=== PATIENT | female | born 1980 | race Caucasian/White ===

== ENCOUNTER 2017-12-24 15:37 | Outpatient (CLI) | payer OTHER | END 2017-12-24 21:06 | disposition home or self-care (01) | LOC: OBT 15:37 → L-D 15:38 → OBT 21:06 | DX: O36.8330 Maternal care for abnormalities of the fetal heart rate or rhythm, third trimester, not applicable or unspecified (principal); O09.523 Supervision of elderly multigravida, third trimester; Z3A.38 38 weeks gestation of pregnancy | CPT/HCPCS: 76818 ==

== ENCOUNTER 2018-01-07 13:13 | Inpatient (IN) | payer OTHER ==
[2018-01-07] MEDS ORDERED: MISOPROSTOL 200 MCG TAB PR (14:00)
[2018-01-07] MEDS ORDERED: LIDOCAINE 1% (MPF) 30 ML INJ INJ (14:00)
[2018-01-07] MEDS ORDERED: OXYTOCIN 30 UNITS/LR 500 ML IV ×2 (14:00→17:30)
[2018-01-07] MEDS ORDERED: CARBOPROST 250 MCG INJ IM (14:00)
[2018-01-07] MEDS: LACTATED RINGER'S 1,000 ML IV* ×2 (15:53→22:30)
[2018-01-07 16:08] LABS: ADD MAN DIFF? NO; BASOPHILS % 0.5 % (0.0-2.0); EOSINOPHILS # 0.1 10^3/ul (0.0-0.5); EOSINOPHILS % 1.5 % (0.0-7.0); HEMATOCRIT 34.2 % (37.0-47.0); HEMOGLOBIN 11.4 g/dl (12.0-16.0); LYMPHOCYTES # 2.1 10^3/ul (0.8-2.9); LYMPHOCYTES % 31.7 % (15.0-51.0); MEAN CORPUSCULAR HGB CONC 33.3 g/dl (32.0-37.0); MONOCYTE # 0.4 10^3/ul (0.3-0.9); MONOCYTES % 5.9 % (0.0-11.0); NEUTROPHIL # 3.9 10^3/ul (1.6-7.5); PLATELET COUNT 162 10^3/UL (140-415); RED BLOOD COUNT 3.93 10^6/ul (4.20-5.40); RED CELL DISTRIBUTION WIDTH 13.5 % (11.5-14.5)
[2018-01-07 16:08] LABS: WHITE BLOOD COUNT 6.6 10^3/ul (4.8-10.8)
[2018-01-07 16:28] LABS: INR 0.89; PARTIAL THROMBOPLASTIN TIME 29.8 Sec (23.0-35.0); PROTIME 12.1 Sec (11.9-14.9); PT RATIO 0.9
[2018-01-07] MEDS: OXYTOCIN 30 UNITS/LR 500 ML IV ×3 (17:50→23:51)
[2018-01-07] MEDS: LIDOCAINE 0.5% (SDV) 50 ML INJ INFIL (20:30)
[2018-01-07] MEDS: BUTORPHANOL 2 MG INJ IV (22:54)
[2018-01-07] MEDS: METHYLERGONOVINE 0.2 MG INJ IM (23:43)
[2018-01-07] MEDS ORDERED: DEXTROSE 5%-LR 1,000 ML IV (23:50)
[2018-01-07] MEDS ORDERED: LACTATED RINGER'S 1,000 ML IV* (23:50)
[2018-01-08] MEDS ORDERED: MISOPROSTOL 200 MCG TAB PR
[2018-01-08] MEDS ORDERED: ONDANSETRON 4 MG INJ IV
[2018-01-08] MEDS ORDERED: METHYLERGONOVINE 0.2 MG INJ IM
[2018-01-08] MEDS ORDERED: ZOLPIDEM 5 MG TAB PO
[2018-01-08] MEDS ORDERED: OXYTOCIN 30 UNITS/LR 500 ML IV
[2018-01-08] MEDS ORDERED: HYDROCODONE/APAP (5/325) TAB PO
[2018-01-08] MEDS ORDERED: SENNA/DOCUSATE NA (8.6MG/50MG) TAB PO
[2018-01-08] MEDS ORDERED: CARBOPROST 250 MCG INJ IM
[2018-01-08] MEDS ORDERED: DIPHENHYDRAMINE 50 MG INJ IV
[2018-01-08] MEDS ORDERED: ACETAMINOPHEN 325 MG TAB PO
[2018-01-08] MEDS ORDERED: DIBUCAINE 1% 30 GM OINT PR
[2018-01-08] MEDS: IBUPROFEN 600 MG TAB PO ×4 (00:56→17:18)
[2018-01-08] MEDS: WITCH HAZEL/GLYCERIN PAD PR (04:25)
[2018-01-08] MEDS: BENZOCAINE 20% 56 ML SPRAY TOP (04:25)
[2018-01-08] MEDS: LANOLIN 7 GM TUBE TOP (04:25)
[2018-01-08] MEDS: OXYTOCIN 30 UNITS/LR 500 ML IV (06:03)
[2018-01-08 08:34] LABS: ADD MAN DIFF? NO
[2018-01-08] MEDS: MAGNESIUM HYDROXIDE 30ML CUP PO ×2 (08:41→20:25)
[2018-01-08 08:42] LABS: BASOPHIL # 0.1 10^3/ul (0.0-0.1); BASOPHILS % 0.5 % (0.0-2.0); EOSINOPHILS % 0.2 % (0.0-7.0); HEMATOCRIT 35.2 % (37.0-47.0); HEMOGLOBIN 11.7 g/dl (12.0-16.0); LYMPHOCYTES % 18.6 % (15.0-51.0); MEAN CORPUSCULAR HEMOGLOBIN 29.1 pg (29.0-33.0); MEAN CORPUSCULAR HGB CONC 33.2 g/dl (32.0-37.0); MEAN CORPUSCULAR VOLUME 87.6 fl (82.0-101.0); MEAN PLATELET VOLUME 11.8 fl (7.4-10.4); MONOCYTE # 0.6 10^3/ul (0.3-0.9); MONOCYTES % 5.6 % (0.0-11.0); NEUTROPHIL # 7.8 10^3/ul (1.6-7.5); NEUTROPHILS % 74.4 % (39.0-77.0); PLATELET COUNT 132 10^3/UL (140-415); RED BLOOD COUNT 4.02 10^6/ul (4.20-5.40); RED CELL DISTRIBUTION WIDTH 13.6 % (11.5-14.5)
[2018-01-08 08:42] LABS: WHITE BLOOD COUNT 10.5 10^3/ul (4.8-10.8)
[2018-01-08] MEDS: DIPHTH/TET/ACEL PERTUSS (ADULT) 0.5 ML VIAL IM* (10:46)
[2018-01-08] MEDS: MEASLES,MUMPS,RUBELLA VACCINE INJ SC* (11:02)
[2018-01-08 15:22] LABS: RAPID PLASMA REAGIN NONREACTIVE (NR)
[2018-01-09] MEDS: IBUPROFEN 600 MG TAB PO ×3 (00:11→11:39)
[2018-01-09] MEDS ORDERED: MEASLES,MUMPS,RUBELLA VACCINE INJ SC* (09:00)
[2018-01-09] MEDS: MAGNESIUM HYDROXIDE 30ML CUP PO (09:10)
== END 2018-01-09 12:55 | disposition home or self-care (01) | DRG 807 ==
LOC: L-D 13:13 → PP1 01-08 01:08 → L-D 13:45
PROVIDERS: Obstetrics & Gynecology
PROC: 10E0XZZ Delivery of Products of Conception, External Approach (ICD-10-PCS; principal; 2018-01-07)
DX: O69.81X0 Labor and delivery complicated by cord around neck, without compression, not applicable or unspecified (principal); Z37.0 Single live birth; Z3A.39 39 weeks gestation of pregnancy
CPT/HCPCS: 76815; 85025; 85610; 85730; 86592; 86850; 86900; 86901; 90715; 99464